=== PATIENT | female | born 1995 | race Caucasian/White ===

== ENCOUNTER 2016-08-21 21:59 | Emergency (ER) | payer OTHER ==
[~2016-08-21] VITALS: Ht 162.6 cm; Wt 62.6 kg
[~2016-08-21 21:59] MED LIST: MOTRIN 800MG T800 MG PO; PERCOCET 325 MG1 TA2 PO
[2016-08-21 22:47] LABS: ABSOLUTE BASOPHIL COUNT 0 /CUMM (0.0-0.2); ABSOLUTE EOSINOPHIL COUNT 0.2 /CUMM (0.0-0.7); ABSOLUTE GRANULOCYTE CT 4.7 /CUMM (1.4-6.5); ABSOLUTE LYMPH COUNT 2.3 /CUMM (1.2-3.4); ABSOLUTE MONOCYTE COUNT 0.5 /CUMM (0.10-0.60); BASOPHIL % 0.3 % (0.0-2.0); EOSINOPHIL % 2.8 % (0-5); GRANULOCYTE % 60.7 % (42.2-75.2); HEMATOCRIT 37.1 % (37-47); MEAN CORPUSCULAR HGB 28.7 PG (27.0-31.0); MEAN CORPUSCULAR HGB CONC 33.8 G/DL (33.0-37.0); MEAN CORPUSCULAR VOLUME 84.7 FL (81.0-99.0); MEAN PLATELET VOLUME 8.7 FL (7.4-10.4); PLATELET COUNT 229 /CUMM (130-400); RBC DISTRIBUTION WIDTH 13.1 % (11.5-14.5); RED BLOOD CELL CT 4.39 /CUMM (4.20-5.40); WHITE BLOOD CELL COUNT 7.8 /CUMM (4.8-10.8)
[2016-08-21 22:57] LABS: PT 12.2 SEC (9.4-12.5); PTT 31 SEC (25-37)
--- NOTE | 2016-08-21 23:15 | ED GI/GU/ABDOMINAL COMPLAINT ---
History of Present Illness General Chief Complaint: Abdominal Pain/Flank Pain Stated Complaint: "BLEEDING VAGINAL" Source: patient Exam Limitations: no limitations Vital Signs & Intake/Output Vital Signs & Intake/Output Vital Signs Date Time Temp Pulse Resp B/P Pulse O2 O2 Flow FiO2 Ox Delivery Rate 08/22 0025 96.8 88 18 126/82 100 Room Air 08/21 2246 Room Air 08/21 2204 97.6 90 18 125/80 97 Room Air ED Intake and Output 08/22 0000 08/21 1200 Intake Total Output Total Balance Patient 138 lb Weight Allergies Coded Allergies: NO KNOWN ALLERGIES (10/03/15) Reconcile Medications OXYCODONE HCL/ACETAMINOPHEN (Percocet 5-325 MG Tablet) 325 MG/5 MG TAB 1 TAB PO Q4P PRN PAIN SCALE 7-8 Yibuprofen (Motrin 800MG Tab) 800 MG TAB 800 MG PO Q6P PRN PAIN SCALE 4-6 Triage Note: PT STATES THAT 3-4 WEEKS AGO SHE HAD AN , BLED FOR 2 WEEKS WHICH SHE WAS TOLD WAS NORMAL, PT STATES THAT SHE BLEEDS RIGHT AFTER SEXUAL INTERCOURSE BUT IT STOPS AFTER A COUPLE OF HOURS. CALLED PMD AND HAD US AND PAP, WAS TOLD THAT SHE IS NO LONGER BUT THAT THERE IS SOME TISSUE, PT STATES THAT THIS PM SHE STARTED TO BLLED AGIAN AND THAT ITS VERY HEAVY, GOING THROUGH 1 PAD EVERY 25 MINUTES. Triage Nurses Notes Reviewed? yes ? N Is pt currently ? No HPI: This patient is a 20-year-old female who presented to the emergency department today for evaluation of vaginal bleeding. The patient reported that approximately 3-1/2 weeks ago she had a medically induced at [facility]. She reported that she was approximately 7 weeks and 3 days gestation at this time. She reported that she had her regular bleeding after the for approximately 2 weeks with only minimal cramping on the first day afterwards. The patient reported that her bleeding did subside for a period of time, she had a follow-up appointment after 2 weeks, and at that time had an internal ultrasound. They told her that there was still some, "gook," inside, but that she did pass the fetus. The patient reported that she was cleared to resume having sexual intercourse. She reported that she went home and had sexual intercourse at night, and then started bleeding for approximately 2 days. The patient reported that the bleeding stopped after 2 days, however, it was heavy bleeding like a period. She reported that a couple days later she had intercourse again and bled for a couple of hours. The patient reported that she resumed intercourse a couple days after that and did not bleed. She reported that she had a follow-up appointment with her HYDRO OPERATOR, Dr. Jean who did another internal ultrasound and blood work. She was told that she did still have some tissue inside of her uterus. The patient reported that she had sexual intercourse last night without bleeding. She reported that today after she was on her feet for a long period of time, she had a monge of blood vaginally which she reported, "felt like my water broke." She reported that she has been having to change a pad and tampon approximately every 20 minutes. She reported some mild, 2 out of 10, intermittent lower abdominal cramping. She denied any nausea or vomiting. She denied any fevers, chills, chest pain, shortness of breath, back pain, constipation, or diarrhea. (OLGA NEELY PA-C) Past History Travel History Traveled to [place] past 21 day No Medical History Any Pertinent Medical History? see below for history Neurological: NONE EENT: NONE Cardiovascular: NONE Respiratory: NONE Gastrointestinal: NONE Hepatic: NONE Renal: NONE Musculoskeletal: NONE Psychiatric: NONE Endocrine: NONE Blood Disorders: NONE Cancer(s): NONE AIR TWISTER WINDER/Reproductive: ovarian cyst Surgical History Surgical History: N Psychosocial History What is your primary language Irish Tobacco Use: Current Daily Use Daily Tobacco Use Amount/Type: => 5 Cigarettes daily ETOH Use: denies use Illicit Drug Use: denies illicit drug use Family History Hx Contributory? No (OLGA NEELY PA-C) Review of Systems Review of Systems Constitutional: Reports: no symptoms. EENTM: Reports: no symptoms. Respiratory: Reports: no symptoms. Cardiovascular: Reports: no symptoms. GI: Reports: see HPI. Genitourinary: Reports: see HPI. Musculoskeletal: Reports: no symptoms. Skin: Reports: no symptoms. Neurological/Psychological: Reports: no symptoms. All Other Systems: Reviewed and Negative (OLGA NEELY PA-C) Physical Exam Physical Exam Gastrointestinal: normal bowel sounds, soft, non-tender, no organomegaly, no rebound or guarding. no peritoneal signs. no masses appreciated. Comments: Well-developed well-nourished person in no acute distress HEENT: Normal EENT exam, moist mucous membranes Neck: Supple. No lymphadenopathy Back: Normal gait. Normal inspection Cardiovascular: Regular rate and rhythm with no murmurs Respiratory: No respiratory distress. Breath sounds clear to auscultation bilaterally with no wheezes, rales, or rhonchi Extremity: Normal and equal pulses Neuro: Alert oriented x3, cranial nerves II through XII grossly intact. Skin: No appreciable rash on exposed skin, skin is warm and dry. Psych: Mood and affect is normal Core Measures ACS in differential dx? No Severe Sepsis Present: No Septic Shock Present: No (OLGA NEELY PA-C) Progress Differential Diagnosis: appendicitis, biliary colic, bowel obstruction, colon cancer, cholecystitis, diverticulitis, ectopic , endometritis, gastritis, hepatitis, ischemic bowel, inflamm bowel dis, intrauterine , kidney stone, ovarian cyst, ovarian torsion, pancreatitis, PID/cervicitis, PUD/ GERD, perforated viscous, threatened AB, UTI/pyelo, retained products of conception Plan of Care: Orders Procedure Date/time Status URINE 08/21 2217 Complete URINALYSIS 08/21 2217 Complete PARTIAL THROMBOPLASTIN TIME 08/21 2217 Complete PROTHROMBIN TIME 08/21 2217 Complete HUMAN BETA HCG TITRE 08/21 2217 Complete COMPREHENSIVE METABOLIC PANEL 08/21 2217 Complete CBC WITHOUT DIFFERENTIAL 08/21 2217 Complete TYPE & SCREEN (NOT X-MATCH) 08/21 2217 Complete Laboratory Tests 08/21/162236: Anion Gap 10, Estimated GFR > 60, BUN/Creatinine Ratio 18.6, Glucose 99, Calcium 9.7, Total Bilirubin 0.8, AST 29, ALT 37, Alkaline Phosphatase 65, Total Protein 7.3, Albumin 4.6, Globulin 2.7, Albumin/Globulin Ratio 1.7, Beta HCG, Quant 40.5 , PT 12.2, INR 1.16, APTT 31, CBC w Diff NO MAN DIFF REQ, RBC 4.39, MCV 84.7, MCH 28.7, RDW 13.1, MPV 8.7, Gran % 60.7, Lymphocytes % 29.7, Monocytes % 6.5, Eosinophils % 2.8, Basophils % 0.3, Absolute Granulocytes 4.7, Absolute Lymphocytes 2.3, Absolute Monocytes 0.5, Absolute Eosinophils 0.2, Absolute Basophils 0, PUBS MCHC 33.8 01/27/17 2235: Urinalysis LIGHT H, Urine Color PINK H, Urine Clarity CLDY H, Urine pH 6.0, Ur Specific Friant >= 1.030, Urine Protein 100 H, Urine Ketones TRACE H, Urine Nitrite NEG, Urine Bilirubin NEG, Urine Urobilinogen 0.2, Ur Leukocyte Esterase NEG, Ur Microscopic SEDIMENT EXAMINED, Urine RBC PACKD H, Urine WBC 3- 5 H, Ur Epithelial Cells FEW, Urine Mucus MOD H, Urine Hemoglobin LARGE H, Urine Glucose NEG, Urine Test POSITIVE Initial ED EKG: none Comments: 08/21/2016 11:27:17 PM: This patient has a stable H&H, both of which are within normal limits. No increase in white blood cell count. I discussed this patient with her HYDRO OPERATOR, Dr. Jean. Dr. Jean stated that this patient did recently have an internal ultrasound and it showed no retained products of conception. It showed some thickening of the lining which would be consistent with her bleeding. She reported that she did tell the patient that if she was bleeding through more than 1 pad an hour, that she come to the emergency department and possibly get a Depo-Provera shot. (CHIN GAY,OLGA) Departure Departure Disposition: HOME OR SELF CARE Condition: Stable Clinical Impression Primary Impression: Vaginal bleeding Referrals: CARLOS TEIXEIRA,JUAN (PCP/Family) Additional Instructions: please call to make a follow-up appointment with your HYDRO OPERATOR. Be sure to stay hydrated and rest. Return to the emergency department for any worsening symptoms or concerns. Departure Forms: Customer Survey General Discharge Information (OLGA NEELY PA-C) PA/CUSTOMER SUPPORT CONSULTANT Co-Sign Statement Statement: ED Attending supervision documentation- [] I saw and evaluated the patient. I have also reviewed all the pertinent lab results and diagnostic results. I agree with the findings and the plan of care as documented in the PA's/CUSTOMER SUPPORT CONSULTANT's documentation. [x] I have reviewed the ED Record and agree with the PA's/CUSTOMER SUPPORT CONSULTANT's documentation. [] Additions or exceptions (if any) to the PAs/CUSTOMER SUPPORT CONSULTANT's note and plan are summarized below: [] (REGGIE TEIXEIRA,MEET Landry)
[2016-08-22 00:25] VITALS: BP 126/82
== END 2016-08-22 00:26 ==
LOC: ERH 21:59
PROVIDERS: Physician Assistant
DX: N93.9 Abnormal uterine and vaginal bleeding, unspecified (principal)
CPT/HCPCS: 81001; 81025; 96372; J1050